=== PATIENT | male | born 1965 | race African-American/Black ===

== ENCOUNTER 2019-08-20 02:31 | Day surgery (SDC) | payer OTHER, SELFPAY ==
[2019-08-11 09:19] VITALS: BMI 40.6
--- NOTE | 2019-08-19 12:24 | PM.IMHP ---
H&P: HPI History of Present Illness Chief complaint: Left Medial Meniscal Tear Narrative: Knee Pain Bilateral knee pain Onset: gradual Location of pain: medial Pain scale (0-10): 9 Character: stabbing and other (sharp) Timing of pain: intermittent Exacerbated by: weight bearing, stairs and prolonged activity Relieved by: elevation, ice, rest and NSAIDs Associated symptoms: Reports popping and instability History of occupational/recreational activity with repetitive motion: No History of prior knee injury: No Review of Systems Review of Systems: All systems reviewed & are unremarkable except as noted in HPI and below Constitutional: Constitutional: Denies headache(s) and Denies weakness Eyes: Eyes: Denies blurry vision, Denies change in vision and Denies loss of vision ENT: Denies dizziness, Denies dry mouth, Denies headache(s) and Denies nasal congestion Cardiovascular: Cardiovascular: Denies chest pain, Denies syncope, Denies leg edema and Denies dyspnea on exertion Respiratory: Respiratory: Denies cough and Denies dyspnea on exertion Gastrointestinal: Gastrointestinal: Denies abdominal pain, Denies constipation and Denies diarrhea Genitourinary: Genitourinary: Denies urinary frequency Musculoskeletal: Musculoskeletal: Reports as per HPI and Denies numbness Integumentary/Breasts: Skin/Breast: Reports system reviewed and no additional complaints, except as docu Neurologic: Denies dizziness, Denies syncope, Denies headache(s), Denies loss of vision, Denies numbness and Denies weakness Psychiatric: Psychiatric: Reports no additional psychiatric complaints Endocrine: Endocrine: Reports no additional endocrine complaints Hematologic/Lymphatic: Hematologic/Lymphatic: Reports no additional hematologic/lymphatic complaints [facility] Past Medical History Medical History (Updated 06/14/19 @ 12:03 by DANIEL Torrez) Acute medial meniscus tear of left knee Acute medial meniscus tear of right knee Left knee pain Social History Social History Smoking status: Never smoker Second hand tobacco smoke exposure: Yes Smoking end date: 06/30/17 Alcohol intake: current Meds Home Medications and Allergies Home Medications Medication Instructions Recorded Confirmed Type rivaroxaban 10 mg tablet 10 mg PO DAILY #14 tablet 08/10/19 08/11/19 Rx aspirin 81 mg PO DAILY 08/11/19 08/11/19 History atorvastatin 20 mg PO DAILY 08/11/19 08/11/19 History bupropion HCl 150 mg PO BID 08/11/19 08/11/19 History diclofenac sodium 75 mg PO DAILY 08/11/19 08/11/19 History epinephrine 0.3 mg IM DIRECTED PRN 08/11/19 08/11/19 History metformin 1,000 mg PO BID 08/11/19 08/11/19 History multivitamin 1 tablet PO DAILY 08/11/19 08/11/19 History phentermine 15 mg PO DAILY 08/11/19 08/11/19 History testosterone cypionate mg IM [id number] 08/11/19 History Allergies Allergy/AdvReac Type Severity Reaction Status Date / Time gabapentin Allergy Unknown NERVE Verified 08/11/19 09:20 PAIN, PARANOIA, SUICIDAL THOUGHTS peanut Allergy Unknown Anaphylactic Verified 08/11/19 09:20 Shock shellfish derived Allergy Unknown Anaphylactic Verified 08/11/19 09:20 Shock tramadol Allergy Unknown PARANOIA, Verified 08/11/19 09:20 NERVE PAIN Exam Narrative: Exam Narrative: Const Constitutional General: cooperative Nutritional Appearance: average body habitus Orientation/consciousness: oriented x3 Constitutional Limitations: no limitations [facility] Head: normal to inspection Ears: hearing grossly normal bilaterally General nose exam: external nose normal Face and sinus: normal facial exam Mouth: moist mucous membranes Teeth and gingiva: dentition normal Eyes General: appearance normal, both eyes and all related structures Pupils: Yes PERRL EOM: EOM intact bilaterally Neck Neck: Yes normal visual inspection Chest Chest palpation & inspection: normal inspectio
--- NOTE | 2019-08-19 13:34 | WPDANESEPPF ---
Anes - Initial Pre Proc Eval Procedure: Operation Date: 08/20/19 07:30 Proposed Procedures p Left Knee Arthroscopy, Proceed As Indicated - Hansel Kirby MD Date/Time: 08/19/19 13:34 Surgeon: Hansel Kirby MD Pre Op Diagnosis: Left Medial Meniscal Tear Patient Data Age: 53 Gender: M Height: 6 ft Weight: 136.08 kg Allergies Allergy/AdvReac Type Severity Reaction Status Date / Time gabapentin Allergy Unknown NERVE Verified 08/11/19 09:20 PAIN, PARANOIA, SUICIDAL THOUGHTS peanut Allergy Unknown Anaphylactic Verified 08/11/19 09:20 Shock shellfish derived Allergy Unknown Anaphylactic Verified 08/11/19 09:20 Shock tramadol Allergy Unknown PARANOIA, Verified 08/11/19 09:20 NERVE PAIN Home Medications Medication Instructions Recorded Confirmed Type rivaroxaban 10 mg tablet 10 mg PO DAILY #14 tablet 08/10/19 08/11/19 Rx aspirin 81 mg PO DAILY 08/11/19 08/11/19 History atorvastatin 20 mg PO DAILY 08/11/19 08/11/19 History bupropion HCl 150 mg PO BID 08/11/19 08/11/19 History diclofenac sodium 75 mg PO DAILY 08/11/19 08/11/19 History epinephrine 0.3 mg IM DIRECTED PRN 08/11/19 08/11/19 History metformin 1,000 mg PO BID 08/11/19 08/11/19 History multivitamin 1 tablet PO DAILY 08/11/19 08/11/19 History phentermine 15 mg PO DAILY 08/11/19 08/11/19 History testosterone cypionate mg IM [id number] 08/11/19 History Patient hx anesthesia problems: none Family hx anesthesia problems: none PMFSH Past Medical History Medical History (Updated 08/19/19 @ 13:34 by Juanjose Shane MD) Acute medial meniscus tear of left knee Acute medial meniscus tear of right knee Anxiety Depression Diabetes Hyperlipidemia Left knee pain Migraine RAMY (obstructive sleep apnea) Social History Social History Smoking status: Never smoker Second hand tobacco smoke exposure: Yes Smoking end date: 06/30/17 Alcohol intake: current Anes - Eval Final PreProcedure Day of Procedure 08/19/19 13:34 Patient weight: morbidly obese Heart: regular rate and rhythm Lungs: clear to auscultation Airway: Mallampati scale class III Neurological: alert and oriented Last oral intake: >/= 8 hours ASA classification: III Emergent: no Anesthetic plan: proceed Anesthesia type and monitoring: general LMA and standard monitoring Informed Consent: The patient's anesthetic plan and its attendant risks and benefits were discussed with the patient/family/POA. Questions were solicited and answers provided to the satisfaction of the patient/family/POA.
[2019-08-20] VITALS (9 sets, daily range): BP systolic 125–143; BP diastolic 65–95; PULSE 70–84; RESP 10–16; TEMP 36.3–36.8; O2SAT 94–100
[2019-08-20] MEDS: LACTATED RINGERS 1,000 ML 30 ML IV CONT ×2 (06:50→09:14)
[2019-08-20 07:07] LABS: Glucose Point of Care 158 (65-105)
--- NOTE | 2019-08-20 07:34 | WPDHPUPDATE1 ---
History and Physical Update Update Date/Time: 08/20/19 07:34 History and Physical has been reviewed, including an updated exam of the patient. There are NO changes in the patient's condition. Risks, benefits, and alternatives have been discussed and questions answered. Patient agrees to proceed with procedure.
[2019-08-20] MEDS: CELECOXIB 200 MG CAPSULE PO (07:43)
[2019-08-20] MEDS: ceFAZolin 3 GM/D5W 100 ML 100 ML IVPB (07:50)
--- NOTE | 2019-08-20 09:13 | PM.OP ---
Procedure Note - Brief Procedure Note - Brief Date of procedure: 08/20/19 Pre-op diagnosis: Left Medial Meniscal Tear Post-op diagnosis: same Procedure performed: L KNEE SCOPE Anesthesia: GETA Surgeon: Hansel Kirby MD Estimated blood loss (mL): 5 Complications: No immediate complications Condition: stable Disposition: PACU
[2019-08-20 09:19] LABS: Glucose Point of Care 146 (65-105)
--- NOTE | 2019-08-20 10:24 | SUR.PREOP ---
[id number] SPENT IN ROOM WITH PT AND , MULTIPLE DISCUSSIONS REGARDING CRUTCH TRAINING VS WALKER USAGE, CONCERNS REGARDING TAKING CELEBREX, CONCERNS REGARDING MARCO ANTONIO HOSE NOT BEING PLACED ON OPERATIVE LEG, MANY ASPECTS OF CARE QUESTIONED BY PATIENT AND , ALL ATTEMPTS MADE TO ANSWER QUESTIONS TO THEIR SATISFACTION. [id number]-DISCUSSED THE ABOVE WITH DR. VELASCO, HE STATES PT SHOULD BE FINE WITH CRUTCHES BUT WILL ALLOW PT TO USE EITHER AND HE WILL FOLLOW UP WITH WALKER ORDER.
--- NOTE | 2019-08-20 12:40 | OP_ITS ---
DATE OF PROCEDURE: 08/20/2019 PREOPERATIVE DIAGNOSIS: Left knee medial meniscus tear and chondromalacia. POSTOPERATIVE DIAGNOSIS: Left knee medial meniscus tear and chondromalacia. PROCEDURE: Left knee arthroscopy with partial medial meniscectomy and chondroplasty and major synovectomy. ANESTHESIA: General. COMPLICATIONS: None. INDICATIONS: This is a 53-year-old male who came in the office with complaints of left knee pain. He was found to have a medial meniscus tear on MRI and chondromalacia. He was indicated for left knee arthroscopy. DESCRIPTION OF PROCEDURE: The patient was taken to the operating room in stable condition and placed in supine position. General anesthesia was reduced and the left lower extremity was prepped and draped sterilely from the toes to the thigh and then the superior medial portal used for an outflow cannula. Inferolateral port was used for the camera. The camera was introduced. There was grade 3 chondromalacia to both patella and to the trochlear groove. There was a lot of synovitis in Hoffa synovium and then in the superior medial compartment. The medial compartment was entered. There was grade 2 chondromalacia to the medial femoral condyle on the main weightbearing surface. There was a small tear of the medial meniscus and a medial portal was established, and then the meniscus tear was debrided with a shaver until there was a nice mid base, and then the chondromalacia underwent chondroplasty. There was also synovectomy performed in the medial compartment due to impingement at the joint surface. The intercondylar notch was entered. The ACL was visualized and it was intact. Lateral compartment was entered. There was no significant chondromalacia. There was no tear of the lateral meniscus. Next, the patellofemoral joint underwent chondroplasty and synovectomy was performed in Hoffa synovium. The knee joint was irrigated thoroughly. The wounds were approximated with 4-0 nylon suture. Sterile dressing applied. The patient was extubated. Kim I MT: Ariella
== END 2019-08-20 11:15 | disposition home or self-care (01) ==
PROVIDERS: PCP Family Medicine; Visit Provider Orthopaedic Surgery
PROC: (CPT 29870; principal; 2019-08-20 07:30)
DX: M23.332 Other meniscus derangements, other medial meniscus, left knee (principal); M94.262 Chondromalacia, left knee; M65.862 Other synovitis and tenosynovitis, left lower leg; E78.5 Hyperlipidemia, unspecified; E11.9 Type 2 diabetes mellitus without complications; G47.33 Obstructive sleep apnea (adult) (pediatric); F41.8 Other specified anxiety disorders; Z79.01 Long term (current) use of anticoagulants; Z79.84 Long term (current) use of oral hypoglycemic drugs; Z79.82 Long term (current) use of aspirin; E66.01 Morbid (severe) obesity due to excess calories; Z68.39 Body mass index [BMI] 39.0-39.9, adult
CPT/HCPCS: 29881; 29876; 97161; A9270; J0690; J1100; J1741; J2250; J2405; J2704; J3010; J7120

== ENCOUNTER 2019-11-18 13:40 | Outpatient (CLI) | payer OTHER, SELFPAY ==
[2019-11-18 14:17] LABS: Hematocrit 44.8 % (42.0-52.0); Hemoglobin 15.2 g/dL (14.0-18.0); Mean Corpuscular HGB Conc 33.9 g/dl (32-36); Mean Corpuscular Hemoglobin 29.2 pg (26-34); Mean Corpuscular Volume 86.2 fl (80-100); Mean Platelet Volume 9.4 fl (7.4-10.4); Platelet Count Result 244 k/mm3 (150-375); Red Cell Distribution Width 14.2 % (11.5-14.5); White Blood Count 4.7 K/mm3 (4.5-10.0)
[2019-11-18 18:49] LABS: Hemoglobin A1C 6.5 % (<5.7)
[2019-11-18 19:57] LABS: Prostate Specific Antigen 1.2 ng/mL (< OR = 4.0)
[2019-11-24 11:18] LABS: Testosterone Free 167.3 pg/mL (35.0-155.0); Testosterone Total 721 ng/dL (250-1100)
== END 2019-11-18 13:41 | disposition home or self-care (01) ==
LOC: ANHLAB 13:42
PROVIDERS: PCP Family Medicine; Visit Provider Family Medicine
DX: E11.9 Type 2 diabetes mellitus without complications (principal); E29.1 Testicular hypofunction
CPT/HCPCS: 36415; 83036; 84153; 84402; 84403; 85027

== ENCOUNTER 2020-03-14 08:49 | Outpatient (CLI) | payer OTHER, SELFPAY ==
[2020-03-14 10:07] LABS: Basophils Percent Auto 0.6 % (0.2-1.2); Eosinophils Absolute Auto 0.2 K/mm3 (0-0.3); Eosinophils Percent Auto 4.5 % (0-4.4); Hematocrit 44.7 % (42.0-52.0); Immature Granulocyte Absolute 0.01 K/mm3 (0.00-0.031); Immature Granulocyte Percent A 0.2 % (0-0.5); Lymphocytes Absolute Auto 1.36 K/mm3 (0.9-3.2); Lymphocytes Percent Auto 29.1 % (18.3-44.2); Mean Corpuscular HGB Conc 33.6 g/dl (32-36); Mean Corpuscular Hemoglobin 29.2 pg (26-34); Mean Corpuscular Volume 87.1 fl (80-100); Mean Platelet Volume 9.8 fl (7.4-10.4); Monocytes Absolute Auto 0.5 K/mm3 (0.1-0.6); Monocytes Percent Auto 11.3 % (2.6-8.5); Neutrophils Absolute Auto 2.5 K/mm3 (1.3-6.7); Neutrophils Percent Auto 54.3 % (45.5-73.1); Platelet Count Result 266 k/mm3 (150-375); Red Blood Count 5.13 M/mm3 (4.6-6.20); Red Cell Distribution Width 13.3 % (11.5-14.5); White Blood Count 4.7 K/mm3 (4.5-10.0)
[2020-03-14 10:21] LABS: Alanine Aminotransferase 27 U/L (4-50); Albumin Level 4.1 g/dL (3.5-5.1); Alkaline Phosphatase 95 U/L (38-126); Anion Gap 5 mmol/L (8-16); Aspartate Amino Transferase 25 U/L (17-59); Bilirubin,Total 0.7 mg/dL (0.2-1.3); Blood Urea Nitrogen 6 mg/dL (9-20); Carbon Dioxide 30 mmol/L (22-30); Chloride 102 mmol/L (98-107); Estimated Glomerular Filt Rate > 60; Glucose 148 mg/dL (75-110); Sodium 137 mmol/L (137-145)
[2020-03-14 10:26] LABS: Hemoglobin A1C 6.8 % (<5.7)
[2020-03-14 10:49] LABS: Prostate Specific Antigen 1.1 ng/mL (< OR = 4.0)
[2020-03-14 10:50] LABS: Vitamin D 25 Hydroxy 31.1 ng/mL
[2020-03-14 11:20] LABS: Add Urine Microscopic? YES; Appearance Urine Clear (Clear); Bilirubin Urine Negative (Negative); Blood Urine Negative (Negative); Color Urine Yellow (Yellow); Glucose Urine UA 3+ mg/dL (Negative); Ketones Urine Trace mg/dL (Negative); Leukocyte Esterase Ur Trace LEU/UL (Negative); Mucus Urine Rare /lpf; Nitrate Urine Negative (Negative); Protein Urine 1+ mg/dL (Negative); RBC Urine 0-2 /hpf (0-2); Squamous Epithelial Cell Urine Rare /hpf (Few)
[2020-03-14 11:24] LABS: Folic Acid 13.9 ng/mL (2.76->20)
[2020-03-14 11:26] LABS: Specific Grav Ur 1.033 (1.001-1.035)
[2020-03-14 11:55] LABS: Microalbumin Urine Random 17.7 mg/L (0-16.7)
[2020-03-14 12:21] LABS: Creatinine Urine 343.7 mg/dL; MALB Creatinine Ratio 5.1 mg/g (0-30)
[2020-03-15 16:08] LABS: Cholesterol 195 mg/dL (0-200); HDL Direct 23 mg/dL; Triglycerides 143 mg/dL (<150)
[2020-03-15 16:17] LABS: LDL Cholesterol Direct 148 mg/dL
== END 2020-03-14 08:50 | disposition home or self-care (01) ==
LOC: ANHLAB 08:51
PROVIDERS: PCP Family Medicine; Visit Provider Family Medicine
DX: E11.9 Type 2 diabetes mellitus without complications (principal); G62.9 Polyneuropathy, unspecified; Z13.9 Encounter for screening, unspecified
CPT/HCPCS: 36415; 80053; 80061; 81001; 82043; 82306; 82607; 82746; 83036; 83735; 84153; 84443; 85025; 87086

== ENCOUNTER 2020-10-06 10:56 | Outpatient (CLI) | payer OTHER, SELFPAY ==
[2020-10-06 11:47] LABS: Cholesterol 155 mg/dL (0-200); HDL Direct 36 mg/dL; Triglycerides 93 mg/dL (<150)
[2020-10-06 11:56] LABS: Hemoglobin A1C 7.8 % (<5.7)
[2020-10-06 11:59] LABS: LDL Cholesterol Direct 100 mg/dL
== END 2020-10-06 10:57 | disposition home or self-care (01) ==
LOC: ANHLAB 10:58
PROVIDERS: PCP Family Medicine; Visit Provider Family Medicine
DX: E11.9 Type 2 diabetes mellitus without complications (principal); E78.2 Mixed hyperlipidemia
CPT/HCPCS: 36415; 80061; 83036

== ENCOUNTER 2021-01-13 09:55 | Outpatient (CLI) | payer OTHER, SELFPAY ==
[2021-01-13 10:34] LABS: Hematocrit 47.3 % (42.0-52.0); Hemoglobin 15.6 g/dL (14.0-18.0); Mean Corpuscular Hemoglobin 28.4 pg (26-34); Mean Corpuscular Volume 86.2 fl (80-100); Mean Platelet Volume 9.8 fl (7.4-10.4); Platelet Count Result 274 k/mm3 (150-375); Red Blood Count 5.49 M/mm3 (4.6-6.20); Red Cell Distribution Width 13.8 % (11.5-14.5); White Blood Count 5.3 K/mm3 (4.5-10.0)
[2021-01-13 10:48] LABS: Alanine Aminotransferase 33 U/L (4-50); Albumin Level 4.3 g/dL (3.5-5.1); Alkaline Phosphatase 83 U/L (38-126); Anion Gap 8 mmol/L (8-16); Aspartate Amino Transferase 24 U/L (17-59); Bilirubin,Total 0.6 mg/dL (0.2-1.3); Blood Urea Nitrogen 11 mg/dL (9-20); Calcium 9.3 mg/dL (8.4-10.2); Carbon Dioxide 27 mmol/L (22-30); Chloride 107 mmol/L (98-107); Cholesterol 188 mg/dL (0-200); Estimated Glomerular Filt Rate > 60; Glucose 127 mg/dL (65-110); HDL Direct 33 mg/dL; Potassium 4.2 mmol/L (3.4-5.0); Sodium 142 mmol/L (137-145); Triglycerides 115 mg/dL (<150)
[2021-01-13 11:00] LABS: LDL Cholesterol Direct 114 mg/dL
[2021-01-13 11:06] LABS: Hemoglobin A1C 6.4 % (<5.7)
[2021-01-13 12:15] LABS: Creatinine Urine 289.5 mg/dL
[2021-01-13 12:20] LABS: MALB Creatinine Ratio 7.6 mg/g (0-30); Microalbumin Urine Random 22.1 mg/L (0-16.7)
[2021-01-17 13:37] LABS: Testosterone Free 21.5 pg/mL (35.0-155.0); Testosterone Total 103 ng/dL (250-1100)
== END 2021-01-13 09:56 | disposition home or self-care (01) ==
PROVIDERS: PCP Family Medicine; Visit Provider Internal Medicine Endocrinology, Diabetes & Metabolism
DX: E11.9 Type 2 diabetes mellitus without complications (principal); E78.5 Hyperlipidemia, unspecified; E29.1 Testicular hypofunction
CPT/HCPCS: 36415; 80053; 80061; 82043; 83036; 84402; 84403; 84439; 84443; 85027

== ENCOUNTER → 2021-01-18 13:58 | Outpatient (CLI) | payer OTHER, SELFPAY ==
--- NOTE | ~2021-01-18 | MR_ITS ---
EXAMINATION: MR lumbar spine wo con EXAM DATE: 01/18/2021 14:33 INDICATION: Lumbago, radiculopathy lumbago, radiculopathy . TECHNIQUE: Multi-sequential, multiplanar MR images of the lumbar spine were obtained without contrast . Sagittal T1, T2, T2 fat saturation images. Axial T2 weighted images. Comparison is made to prior examination from 02/03/2019. FINDINGS: There is mild to moderate disc disease at L3-4 and L4-5, mild at the other lumbar levels. T here is 2-3 mm retrolisthesis L4 on L5 and L5 on S1. There are no focal marrow signal abnormalities s uspicious for malignancy or acute fracture. Paraspinal soft tissue is unremarkable. Level by level evaluation: T12-L1: Disc does not extend beyond the endplate margin. Facet arthropathy: Minimal. Neural foraminal stenosis: No stenosis. Central canal stenosis: No stenosis. L1-L2: Disc does not extend beyond the endplate margin. Facet arthropathy: Mild. Neural foraminal stenosis: No stenosis. Central canal stenosis: No stenosis. L2-L3: There is a mild diffuse disc bulge. Facet arthropathy: Mild to moderate. Neural foraminal stenosis: Mild right. Central canal stenosis: No stenosis. L3-L4: There is a moderate diffuse disc bulge. Facet arthropathy: Moderate. Neural foraminal stenosis: Moderate right, mild to moderate left. Central canal stenosis: Mild. L4-L5: There is a moderate diffuse disc bulge. Facet arthropathy: Moderate. Neural foraminal stenosis: Moderate right, mild to moderate left. Central canal stenosis: Mild. L5-S1: There is a mild diffuse disc bulge. Facet arthropathy: Mild. Neural foraminal stenosis: Mild bilateral. Central canal stenosis: No stenosis. Minimal progression in spondylosis compared to 2019. IMPRESSION: 1. L3-4 and L4-5 moderate right neural foraminal stenosis. 2. Less spondylosis other levels. Reviewed, dictated and finalized at location A.
== END ==
PROVIDERS: PCP Family Medicine; Visit Provider Nurse Practitioner Family
DX: M47.25 Other spondylosis with radiculopathy, thoracolumbar region (principal); M48.05 Spinal stenosis, thoracolumbar region; M47.27 Other spondylosis with radiculopathy, lumbosacral region; M48.07 Spinal stenosis, lumbosacral region
CPT/HCPCS: 72148

== ENCOUNTER 2021-03-10 09:09 | Emergency (ER) | payer OTHER, SELFPAY ==
[2021-03-10 09:20] VITALS: BP 164/93; PULSE 97; RESP 16; TEMP 36.4; O2SAT 100
[2021-03-10 10:56] VITALS: BP 164/93; PULSE 97; RESP 20; TEMP 36.4; O2SAT 97
--- NOTE | 2021-03-10 12:50 | ED.GENADULT ---
HPI - General Adult General Chief complaint: Neuro Symptoms/Deficit Stated complaint: neuro Time Seen by Provider: 03/10/21 11:09 Source: patient Mode of arrival: ambulatory Limitations: no limitations History of Present Illness HPI narrative: Patient presents with chief complaint of increased pain and tingling in his neck and left arm over the past few days. Patient states that he is diagnosed with a pinched nerve in his neck and back. However over the past 2 days his symptoms have been escalating. Patient denies any recent trauma or injuries to the areas. Patient states that he is scheduled for MRI of his neck on 03-14-21. Patient states he is on anti-inflammatories for his pain with they are not relieving his symptoms. Patient reports a history of diabetes but states that his blood sugars are controlled. He denies being on steroids at this time. Related Data Home Medications Medication Instructions Recorded Confirmed aspirin 81 mg PO DAILY 08/11/19 08/20/19 atorvastatin 20 mg PO DAILY 08/11/19 08/20/19 bupropion HCl 150 mg PO BID 08/11/19 08/20/19 diclofenac sodium 75 mg PO DAILY 08/11/19 08/20/19 epinephrine 0.3 mg IM DIRECTED PRN 08/11/19 08/11/19 metformin 1,000 mg PO BID 08/11/19 08/20/19 multivitamin 1 tablet PO DAILY 08/11/19 08/20/19 phentermine 15 mg PO DAILY 08/11/19 08/20/19 testosterone cypionate mg IM [id number] 08/11/19 Allergies Allergy/AdvReac Type Severity Reaction Status Date / Time gabapentin Allergy Severe NERVE Verified 09/06/19 13:22 PAIN, PARANOIA, SUICIDAL THOUGHTS peanut Allergy Severe Anaphylactic Verified 09/06/19 13:22 Shock shellfish derived Allergy Severe Anaphylactic Verified 09/06/19 13:22 Shock tramadol Allergy Severe PARANOIA, Verified 09/06/19 13:22 NERVE PAIN Review of Systems Review of Systems: CONSTITUTIONAL: Denies fever, chills, or sweats. EYES: Denies visual changes, redness, or discharge. ENT: Denies rhinorrhea, congestion, sore throat, or otalgia. CARDIOVASCULAR: Denies chest pain, palpitations, or edema. RESPIRATORY: Denies cough or dyspnea. GASTROINTESTINAL: Denies abdominal pain, nausea, vomiting, or diarrhea. GENITOURINARY: Denies dysuria or hematuria. SKIN: Denies rash or itching. MUSCULOSKELETAL: Reports neck pain, back pain denies myalgia. NEUROLOGIC: Reports tingling and numbness denies headache, dizziness, or weakness. PSYCHIATRIC: Denies anxiety or depression. [facility] Past Medical History Medical History (Updated 03/10/21 @ 12:56 by Tami Kapadia PA-C) Acute medial meniscus tear of left knee Acute medial meniscus tear of right knee Anxiety Depression Diabetes Hyperlipidemia Left knee pain Migraine RAMY (obstructive sleep apnea) Family History Family History Other Diabetes mellitus Family history of arthritis Social History Social History Smoking status: Never smoker Second hand tobacco smoke exposure: Yes Smoking end date: 06/30/17 Alcohol intake: current Exam Narrative: GENERAL: Well-appearing, well-nourished, and in no acute distress. HEAD: Normocephalic, atraumatic. EYES: PERRLA and EOMI. NECK: Supple. No adenopathy or masses. Patient reports increased pain and tingling to his left upper extremity with rotation of his neck. Patient also reports increased pain with looking upwards. Patient does have range of motion in his neck however there is no rigidity. CHEST: Clear to auscultation. No respiratory distress. No wheezes rales or rhonchi HEART: Regular rate and rhythm. No murmur heard. Normal peripheral pulses. SKIN: Warm, dry, no rash. NEURO: No focal deficits. Alert and oriented x3. PSYCH: Normal mood and affect. Course Vital Signs Vital signs: Vital Signs Temperature 97.6 F 03/10/21 09:20 Pulse Rate 97 03/10/21 09:20 Respiratory Rate 16 03/10/21 09:20 Blood Pressure
[2021-03-10 13:20] VITALS: BP 131/86; PULSE 63; RESP 16; O2SAT 100
== END 2021-03-10 13:21 | disposition home or self-care (01) ==
PROVIDERS: Emergency Provider Emergency Medicine; PCP Family Medicine
DX: M54.12 Radiculopathy, cervical region (principal); F41.9 Anxiety disorder, unspecified; F32.9 Major depressive disorder, single episode, unspecified; E11.9 Type 2 diabetes mellitus without complications; E78.5 Hyperlipidemia, unspecified; G47.33 Obstructive sleep apnea (adult) (pediatric); Z77.22 Contact with and (suspected) exposure to environmental tobacco smoke (acute) (chronic); Z79.84 Long term (current) use of oral hypoglycemic drugs; Z79.82 Long term (current) use of aspirin
CPT/HCPCS: 99283

== ENCOUNTER 2021-03-13 09:05 | Outpatient (CLI) | payer OTHER, SELFPAY ==
[2021-03-13 09:50] LABS: Basophils Percent Auto 0.4 % (0.2-1.2); Eosinophils Absolute Auto 0.3 K/mm3 (0-0.3); Eosinophils Percent Auto 4.3 % (0-4.4); Hematocrit 42.4 % (42.0-52.0); Hemoglobin 13.9 g/dL (14.0-18.0); Immature Granulocyte Absolute 0.03 K/mm3 (0.00-0.031); Immature Granulocyte Percent A 0.4 % (0-0.5); Lymphocytes Absolute Auto 1.99 K/mm3 (0.9-3.2); Lymphocytes Percent Auto 25.1 % (18.3-44.2); Mean Corpuscular HGB Conc 32.8 g/dl (32-36); Mean Corpuscular Hemoglobin 28.5 pg (26-34); Mean Corpuscular Volume 87.1 fl (80-100); Mean Platelet Volume 9.6 fl (7.4-10.4); Monocytes Absolute Auto 0.9 K/mm3 (0.1-0.6); Monocytes Percent Auto 10.7 % (2.6-8.5); Neutrophils Absolute Auto 4.7 K/mm3 (1.3-6.7); Neutrophils Percent Auto 59.1 % (45.5-73.1); Platelet Count Result 237 k/mm3 (150-375); Red Blood Count 4.87 M/mm3 (4.6-6.20); Red Cell Distribution Width 14.3 % (11.5-14.5); White Blood Count 7.9 K/mm3 (4.5-10.0)
[2021-03-16 07:16] LABS: FSH 1.3 mIU/mL (1.6-8.0); LH 0.6 mIU/mL (1.5-9.3); Prolactin 6.4 ng/mL (***)
[2021-03-16 11:48] LABS: Sex Hormone Binding Globulin 12 nmol/L (10-50)
[2021-03-18 21:14] LABS: Testosterone Free 48.8 pg/mL (35.0-155.0); Testosterone Total 217 ng/dL (250-1100)
== END 2021-03-13 09:06 | disposition home or self-care (01) ==
PROVIDERS: PCP Family Medicine; Visit Provider Internal Medicine Endocrinology, Diabetes & Metabolism
DX: R79.89 Other specified abnormal findings of blood chemistry (principal)
CPT/HCPCS: 36415; 83001; 83002; 84146; 84270; 84402; 84403; 85025

== ENCOUNTER → 2021-03-14 08:48 | Outpatient (CLI) | payer OTHER, SELFPAY ==
--- NOTE | ~2021-03-14 | MR_ITS ---
EXAMINATION: MR cervical spine wo con EXAM DATE: 03/14/2021 10:34 INDICATION: Left upper extremity weakness, paresthesias . TECHNIQUE: Multi-sequential, multiplanar MR images of the cervical spine were obtained without contra st. Axial T2, axial T2 MERGE sequence. Sagittal T1, T2, T2 fat saturation images also obtained. Th ere is no prior study for comparison. FINDINGS: There is mild mid cervical and lower cervical disc disease. The vertebral bodies are align ed in the AP dimension. Vertebral body heights are maintained. There are no suspicious marrow signal abnormalities. The spinal cord signal intensity and intrinsic morphology is normal. Cervicomedullary junction is normal in appearance. Right thyroid lobe nodule measuring about 2 cm, was previously imag ed by ultrasound. Level by level evaluation: C2-C3: Disc does not extend beyond the endplate margin. Uncovertebral joint arthropathy: None. Facet joint arthropathy: Mild bilateral. Neural foraminal stenosis: No stenosis. Central canal stenosis: No stenosis. C3-C4: There is a mild diffuse disc bulge. Uncovertebral joint arthropathy: Moderate right, mild to moderate left. Facet joint arthropathy: Mild bilateral. Neural foraminal stenosis: Moderate to severe right, moderate left. Central canal stenosis: Mild. C4-C5: Disc does not extend beyond the endplate margin. Uncovertebral joint arthropathy: Mild bilateral. Facet joint arthropathy: Mild bilateral. Neural foraminal stenosis: Mild left. Central canal stenosis: No stenosis. C5-C6: There is a mild diffuse disc bulge. Uncovertebral joint arthropathy: Mild to moderate right, mild left. Facet joint arthropathy: Mild bilateral. Neural foraminal stenosis: Mild to moderate right, mild left. Central canal stenosis: No stenosis. C6-C7: There is a mild diffuse disc bulge. Uncovertebral joint arthropathy: Moderate to severe right, moderate left. Facet joint arthropathy: None. Neural foraminal stenosis: Moderate to severe right, moderate left. Central canal stenosis: Mild. C7-T1: Disc does not extend beyond the endplate margin. Uncovertebral joint arthropathy: Mild to moderate bilateral. Facet joint arthropathy: Mild right. Neural foraminal stenosis: No stenosis. Central canal stenosis: No stenosis. IMPRESSION: 1. Multilevel neural foraminal stenosis as detailed above. Reviewed, dictated and finalized at location B.
== END ==
PROVIDERS: PCP Family Medicine
DX: M47.813 Spondylosis without myelopathy or radiculopathy, cervicothoracic region (principal); R53.83 Other fatigue; R20.2 Paresthesia of skin; M48.03 Spinal stenosis, cervicothoracic region
CPT/HCPCS: 72141

== ENCOUNTER 2021-04-05 07:47 | Outpatient (CLI) | payer OTHER, SELFPAY ==
[2021-04-05 08:35] LABS: Basophils Percent Auto 0.5 % (0.2-1.2); Eosinophils Absolute Auto 0.4 K/mm3 (0-0.3); Eosinophils Percent Auto 6.2 % (0-4.4); Hematocrit 43.5 % (42.0-52.0); Hemoglobin 14.5 g/dL (14.0-18.0); Immature Granulocyte Absolute 0.02 K/mm3 (0.00-0.031); Immature Granulocyte Percent A 0.3 % (0-0.5); Lymphocytes Absolute Auto 1.66 K/mm3 (0.9-3.2); Lymphocytes Percent Auto 25.6 % (18.3-44.2); Mean Corpuscular HGB Conc 33.3 g/dl (32-36); Mean Corpuscular Hemoglobin 29.1 pg (26-34); Mean Corpuscular Volume 87.2 fl (80-100); Mean Platelet Volume 9.8 fl (7.4-10.4); Monocytes Absolute Auto 0.8 K/mm3 (0.1-0.6); Monocytes Percent Auto 11.6 % (2.6-8.5); Neutrophils Absolute Auto 3.6 K/mm3 (1.3-6.7); Neutrophils Percent Auto 55.8 % (45.5-73.1); Platelet Count Result 259 k/mm3 (150-375); Red Blood Count 4.99 M/mm3 (4.6-6.20); Red Cell Distribution Width 14.2 % (11.5-14.5); White Blood Count 6.5 K/mm3 (4.5-10.0)
[2021-04-05 08:52] LABS: Alanine Aminotransferase 53 U/L (4-50); Albumin Level 4.3 g/dL (3.5-5.1); Alkaline Phosphatase 88 U/L (38-126); Anion Gap 6 mmol/L (8-16); Aspartate Amino Transferase 24 U/L (17-59); Bilirubin,Total 0.5 mg/dL (0.2-1.3); Blood Urea Nitrogen 14 mg/dL (9-20); Calcium 8.9 mg/dL (8.4-10.2); Carbon Dioxide 27 mmol/L (22-30); Chloride 106 mmol/L (98-107); Cholesterol 201 mg/dL (0-200); Estimated Glomerular Filt Rate > 60; Glucose 170 mg/dL (65-110); HDL Direct 33 mg/dL; Magnesium 2.1 mg/dL (1.6-2.3); Potassium 3.9 mmol/L (3.4-5.0); Sodium 139 mmol/L (137-145); Triglycerides 226 mg/dL (<150); Uric Acid 4.1 mg/dL (3.5-8.5)
[2021-04-05 09:03] LABS: LDL Cholesterol Direct 103 mg/dL
[2021-04-05 09:24] LABS: Prostate Specific Antigen 1.3 ng/mL (< OR = 4.0)
[2021-04-05 09:29] LABS: Hemoglobin A1C 6.6 % (<5.7)
[2021-04-05 09:31] LABS: Vitamin D 25 Hydroxy 49.8 ng/mL
[2021-04-05 09:32] LABS: Add Urine Microscopic? YES; Appearance Urine Clear (Clear); Bilirubin Urine Negative (Negative); Blood Urine Negative (Negative); Color Urine Yellow (Yellow); Glucose Urine UA 3+ mg/dL (Negative); Ketones Urine Negative (Negative); Leukocyte Esterase Ur Negative LEU/UL (Negative); Mucus Urine Rare /lpf; Nitrate Urine Negative (Negative); Protein Urine Negative (Negative); RBC Urine 0-2 /hpf (0-2); Specific Grav Ur 1.022 (1.001-1.035); Urobilinogen Urine Negative mg/dL (<2.0); WBC Urine 0-3 /hpf
[2021-04-05 09:40] LABS: Creatinine Urine 199.9 mg/dL
[2021-04-05 09:44] LABS: MALB Creatinine Ratio 5.3 mg/g (0-30); Microalbumin Urine Random 10.5 mg/L (0-16.7)
[2021-04-09 09:43] LABS: Testosterone Total 396 ng/dL (250-1100)
== END 2021-04-05 07:48 | disposition home or self-care (01) ==
LOC: ANHLAB 07:49
PROVIDERS: PCP Family Medicine; Visit Provider Family Medicine
DX: Z12.5 Encounter for screening for malignant neoplasm of prostate (principal); E11.9 Type 2 diabetes mellitus without complications; E29.1 Testicular hypofunction; M19.90 Unspecified osteoarthritis, unspecified site; G62.9 Polyneuropathy, unspecified; G89.29 Other chronic pain; Z00.00 Encounter for general adult medical examination without abnormal findings
CPT/HCPCS: 36415; 80053; 80061; 81001; 82043; 82306; 82607; 82746; 83036; 83735; 84153; 84402; 84403; 84443; 84550; 85025

== ENCOUNTER 2021-05-12 10:31 | Outpatient (CLI) | payer OTHER, SELFPAY ==
[2021-05-12 10:52] LABS: Hematocrit 46.3 % (42.0-52.0); Hemoglobin 15.7 g/dL (14.0-18.0); Mean Corpuscular HGB Conc 33.9 g/dl (32-36); Mean Corpuscular Hemoglobin 29.7 pg (26-34); Mean Corpuscular Volume 87.5 fl (80-100); Mean Platelet Volume 9.7 fl (7.4-10.4); Platelet Count Result 257 k/mm3 (150-375); Red Blood Count 5.29 M/mm3 (4.6-6.20); Red Cell Distribution Width 14.4 % (11.5-14.5); White Blood Count 6.3 K/mm3 (4.5-10.0)
[2021-05-12 11:03] LABS: Hemoglobin A1C 6.5 % (<5.7)
[2021-05-12 11:04] LABS: Alanine Aminotransferase 36 U/L (4-50); Albumin Level 4.4 g/dL (3.5-5.1); Alkaline Phosphatase 81 U/L (38-126); Anion Gap 6 mmol/L (8-16); Aspartate Amino Transferase 23 U/L (17-59); Bilirubin,Total 0.6 mg/dL (0.2-1.3); Blood Urea Nitrogen 9 mg/dL (9-20); Calcium 9.7 mg/dL (8.4-10.2); Carbon Dioxide 30 mmol/L (22-30); Chloride 103 mmol/L (98-107); Cholesterol 225 mg/dL (0-200); Estimated Glomerular Filt Rate > 60; Glucose 146 mg/dL (65-110); HDL Direct 31 mg/dL; Potassium 4.1 mmol/L (3.4-5.0); Sodium 139 mmol/L (137-145); Triglycerides 154 mg/dL (<150)
[2021-05-12 11:16] LABS: LDL Cholesterol Direct 154 mg/dL
[2021-05-12 11:21] LABS: Free T4 Free Thyroxine 0.85 ng/mL (0.78-2.19)
[2021-05-12 11:35] LABS: Thyroid Stimulating Hormone 0.868 uIU/mL (0.465-4.680)
[2021-05-12 12:35] LABS: MALB Creatinine Ratio 6.1 mg/g (0-30); Microalbumin Urine Random 12.2 mg/L (0-16.7)
[2021-05-18 19:28] LABS: Testosterone Free 171.3 pg/mL (35.0-155.0); Testosterone Total 603 ng/dL (250-1100)
== END 2021-05-12 10:32 | disposition home or self-care (01) ==
PROVIDERS: PCP Family Medicine; Visit Provider Internal Medicine Endocrinology, Diabetes & Metabolism
DX: E29.1 Testicular hypofunction (principal); E11.9 Type 2 diabetes mellitus without complications
CPT/HCPCS: 36415; 80053; 80061; 82043; 83036; 84402; 84403; 84439; 84443; 85027

== ENCOUNTER → 2021-06-07 11:01 | Outpatient (CLI) | payer OTHER, SELFPAY ==
--- NOTE | ~2021-06-07 | US_ITS ---
EXAMINATION: US thyroid DATE: 06/07/2021 11:21 INDICATION: Thyroid nodule TECHNIQUE: Multiple ultrasound images of the thyroid were obtained. COMPARISON: 03/03/2019 FINDINGS: The right thyroid lobe measures 4.8 x 2.4 x 2.7 cm. The left thyroid lobe measures 4.9 x 2.2 x 2.1 c m. Single 2.8 x 2.3 x 2.3 cm solid isoechoic wider than tall nodules with smooth margins (TI-RADS 4, moderately suspicious , FNA if >=1.5 cm, annual followup is >=1 cm) in the inferior right thyroid wh ich is increased in size from 2.5 x 2.0 x 2.3 cm . There is normal echotexture, echogenicity and vasc ular flow throughout the remainder of the thyroid gland. IMPRESSION: 1. Mild interval enlargement of a 2.8 cm TI-RADS 4 right thyroid nodule for which ultrasound-guided b iopsy would be recommended. Reviewed, dictated and finalized at location B. LMER APPRENTICE IMPRESSION: 1. Mild interval enlargement of a 2.8 cm TI-RADS 4 right thyroid nodule for whi ch ultrasound-guided biopsy would be recommended.
== END ==
PROVIDERS: PCP Family Medicine; Visit Provider Internal Medicine Endocrinology, Diabetes & Metabolism
DX: E04.1 Nontoxic single thyroid nodule (principal)
CPT/HCPCS: 76536

== ENCOUNTER 2021-07-25 16:53 | Outpatient (CLI) | payer OTHER, SELFPAY ==
--- NOTE | ~2021-07-25 | US_ITS ---
US venous doppler [facility] DATE: 07/25/2021 17:37 INDICATION: Left calf pain TECHNIQUE: Real-time and color flow imaging and Doppler analysis of the veins of the left COMPARISON: None FINDINGS: Left greater saphenous vein is patent. There is spontaneous and phasic flow and normal augm entation and color flow signal and normal compression of the deep veins of the left leg IMPRESSION: No evidence of deep venous thrombosis of left lower extremity Reviewed, dictated and finalized at Location A. Reviewed, dictated and finalized at location A. [employer]
== END 2021-07-25 16:54 | disposition home or self-care (01) ==
LOC: ANHIMG 16:57
PROVIDERS: PCP Family Medicine; Visit Provider Family Medicine
DX: M79.89 Other specified soft tissue disorders (principal)
CPT/HCPCS: 93971

== ENCOUNTER 2021-10-01 13:48 | Outpatient (CLI) | payer OTHER, SELFPAY ==
[2021-10-01 14:17] LABS: Basophils Percent Auto 0.5 % (0.2-1.2); Eosinophils Absolute Auto 0.3 K/mm3 (0-0.3); Eosinophils Percent Auto 4.7 % (0-4.4); Hematocrit 49.4 % (42.0-52.0); Hemoglobin 15.7 g/dL (14.0-18.0); Immature Granulocyte Absolute 0.02 K/mm3 (0.00-0.031); Immature Granulocyte Percent A 0.3 % (0-0.5); Lymphocytes Absolute Auto 1.76 K/mm3 (0.9-3.2); Lymphocytes Percent Auto 29.4 % (18.3-44.2); Mean Corpuscular HGB Conc 31.8 g/dl (32-36); Mean Corpuscular Hemoglobin 28.3 pg (26-34); Mean Corpuscular Volume 89.2 fl (80-100); Mean Platelet Volume 9.6 fl (7.4-10.4); Monocytes Absolute Auto 0.6 K/mm3 (0.1-0.6); Monocytes Percent Auto 10.4 % (2.6-8.5); Neutrophils Absolute Auto 3.3 K/mm3 (1.3-6.7); Neutrophils Percent Auto 54.7 % (45.5-73.1); Platelet Count Result 280 k/mm3 (150-375); Red Blood Count 5.54 M/mm3 (4.6-6.20); Red Cell Distribution Width 13.3 % (11.5-14.5)
[2021-10-01 15:41] LABS: Alanine Aminotransferase 61 U/L (4-50); Albumin Level 4.1 g/dL (3.5-5.1); Alkaline Phosphatase 82 U/L (38-126); Anion Gap 6 mmol/L (8-16); Aspartate Amino Transferase 30 U/L (17-59); Bilirubin,Total 0.5 mg/dL (0.2-1.3); Blood Urea Nitrogen 11 mg/dL (9-20); Calcium 9.3 mg/dL (8.4-10.2); Carbon Dioxide 30 mmol/L (22-30); Chloride 104 mmol/L (98-107); Estimated Glomerular Filt Rate > 60; Glucose 137 mg/dL (65-110); Potassium 4.2 mmol/L (3.4-5.0); Sodium 140 mmol/L (137-145)
[2021-10-03 19:15] LABS: Erythropoietin (EPO) 16.3 mIU/mL (2.6-18.5)
== END 2021-10-01 13:49 | disposition home or self-care (01) ==
LOC: ANHLAB 13:49
PROVIDERS: PCP Family Medicine; Visit Provider Internal Medicine Hematology & Oncology
DX: D75.1 Secondary polycythemia (principal)
CPT/HCPCS: 36415; 80053; 82668; 85025